=== PATIENT | male | born 1980 | race Asian ===

== ENCOUNTER 2024-03-10 07:26 | Day surgery (SDC) | payer OTHER ==
[~2024-03-10] VITALS: Ht 170.2 cm; Wt 72.6 kg
[2024-03-10] MEDS ORDERED: MEPERIDINE 100 MG INJ. 100 MG/ML VIAL ONE (08:10)
[2024-03-10] MEDS ORDERED: MIDAZOLAM HCL 5 MG/5 ML VIAL ONE (08:11)
[2024-03-10 13:02] VITALS: BP_SYST 100; PULSE 65; RESP 12
== END 2024-03-10 11:06 | disposition home or self-care (01) ==
LOC: SDS 07:26 → SMU 07:27 → SDS 11:06
PROVIDERS: ATTEND Internal Medicine
DX: K59.00 Constipation, unspecified (principal); K64.8 Other hemorrhoids; I10 Essential (primary) hypertension; E11.9 Type 2 diabetes mellitus without complications; K21.9 Gastro-esophageal reflux disease without esophagitis; E78.00 Pure hypercholesterolemia, unspecified; Z79.84 Long term (current) use of oral hypoglycemic drugs; Z79.899 Other long term (current) drug therapy; Z87.891 Personal history of nicotine dependence; Z88.0 Allergy status to penicillin
CPT/HCPCS: 45378; 82948; 99152; G0378; J2250; J2175